=== PATIENT | male | born 1970 | race African-American/Black ===

== ENCOUNTER 2020-04-25 10:52 | Emergency (ER) | payer BC, SELFPAY ==
--- NOTE | ~2020-04-25 | XR_ITS ---
XR chest 2V DATE: 04/25/2020 11:30 INDICATION: Chest pain along anterior chest wall for 6 weeks TECHNIQUE: PA and lateral views COMPARISON: 08/04/2018 PA and lateral chest FINDINGS: Normal heart size. No hilar or mediastinal enlargement. No pulmonary infiltrate or consolid ation, pleural effusion or pulmonary vascular congestion or pneumothorax. Chronic anterior wedge comp ression fracture deformities including T8, T9 and particularly T10. IMPRESSION: No active cardiopulmonary disease Chronic compression fracture deformities of the lower thoracic spine Reviewed, dictated and finalized at location B.
--- NOTE | 2020-04-25 10:59 | ECG_ITS ---
Measurements Intervals [place] Rate: 91 P: 46 GA: 146 QRS: 54 QRSD: 80 T: 9 QT: 346 QTc: 427 Interpretive Statements SINUS RHYTHM EARLY PRECORDIAL R/S TRANSITION BASELINE WANDER- II, III, AVF BORDERLINE ECG Electronically Signed On 04-25-2020 12:24:35 CDT by Wilton Dunlap D.O.
[2020-04-25 11:21] LABS: Basophils Percent Auto 0.4 % (0.2-1.2); Eosinophils Absolute Auto 0.1 K/mm3 (0-0.3); Eosinophils Percent Auto 1.3 % (0-4.4); Hematocrit 42.9 % (42.0-52.0); Hemoglobin 13.8 g/dL (14.0-18.0); Immature Granulocyte Absolute 0.01 K/mm3 (0.00-0.031); Immature Granulocyte Percent A 0.2 % (0-0.5); Lymphocytes Absolute Auto 1.59 K/mm3 (0.9-3.2); Lymphocytes Percent Auto 33.5 % (18.3-44.2); Mean Corpuscular HGB Conc 32.2 g/dl (32-36); Mean Corpuscular Hemoglobin 23.4 pg (26-34); Mean Corpuscular Volume 72.7 fl (80-100); Mean Platelet Volume 11.7 fl (7.4-10.4); Monocytes Absolute Auto 0.4 K/mm3 (0.1-0.6); Monocytes Percent Auto 8.2 % (2.6-8.5); Neutrophils Absolute Auto 2.7 K/mm3 (1.3-6.7); Neutrophils Percent Auto 56.4 % (45.5-73.1); Platelet Count Result 176 k/mm3 (150-375); Red Cell Distribution Width 15.2 % (11.5-14.5); White Blood Count 4.7 K/mm3 (4.5-10.0)
--- NOTE | 2020-04-25 11:26 | ED.GENADULT ---
HPI - General Adult General Chief complaint: Chest Pain Stated complaint: CHEST PAIN [id number] Time Seen by Provider: 04/25/20 11:09 Source: patient Mode of arrival: ambulatory Limitations: no limitations History of Present Illness HPI narrative: Patient is a 49-year-old male who presents to emergency department for evaluation of chest heaviness across the chest from primary care doctor's office symptoms have been present for 6 weeks and persistent in nature denies any illness or other complaints and is otherwise in the room in no distress upon arrival Related Data Allergies Allergy/AdvReac Type Severity Reaction Status Date / Time Sulfa (Sulfonamide Allergy Unknown Hyperactive Verified 04/25/20 12:10 Antibiotics) ENVIRONMENTAL ALLERGIES Allergy Unknown Sneezing Uncoded 04/25/20 12:10 Review of Systems Review of Systems: All systems reviewed & are unremarkable except as noted in HPI and below PMFSH Past Medical History Medical History HIV (human immunodeficiency virus infection) Surgical History Surgical History History of appendectomy History of nasal surgery Chronic 9500-6409 Family History Family History (Updated 03/23/14 @ 07:13 by DOCTOR UNKNOWN) Mother Family history of primary malignant neoplasm of liver Social History Social History Smoking status: Current every day smoker Tobacco type: cigarettes Additional smoking assessment comments: 1 PPD x 25 years Alcohol intake: current Gender identity (if verbalized by the patient): Male Exam Narrative: Exam Narrative: GENERAL: Well-appearing, well-nourished, and in no acute distress. HEAD: Normocephalic, atraumatic. EYES: PERRLA and EOMI. ENT: Nares clear, no rhinorrhea or epistaxis. Mucous membranes moist. Oropharynx without tonsillar hypertrophy exudate or other lesions. CHEST: Clear to auscultation. No respiratory distress. No wheezes rales or rhonchi HEART: Regular rate and rhythm. No murmur heard. Normal peripheral pulses. ABDOMEN: Soft, nontender, nondistended EXTREMITIES: Normal range of motion. No edema. SKIN: Warm, dry, no rash. NEURO: No focal deficits. Alert and oriented x3. PSYCH: Normal mood and affect. Course Course Emergency Course: Patient in the room in no distress aware of case findings treatment plan and diagnosis agreeing to follow-up as directed or to return if symptoms worsen or concerns Vital Signs Vital signs: Vital Signs Pulse Rate 84 04/25/20 12:03 Respiratory Rate 20 04/25/20 12:03 Blood Pressure 143/103 H 04/25/20 12:03 Pulse Oximetry 98 04/25/20 12:03 Pulse Rate 87 04/25/20 12:03 Respiratory Rate 20 04/25/20 12:03 Blood Pressure 143/103 H 04/25/20 12:03 Pulse Oximetry 100 04/25/20 12:08 Medical Decision Making MDM Narrative Medical decision making narrative: Paitents EKGs and labs are without significant high risk changes. Cardiac risk facotrs were reviewd. Patient is felt likely to be low risk for ACS and resonable for further risk stratification testing as an outpatient. Pain was not suddne or maximal in onset without tearing or ripping. quality. No other signs or symptoms to suggest aortic dissection. A low-risk Wells criteria is noted. PE is felt to be unlikely. No pneumonia or URI symptoms were seen on evaluation today. Patient is felt to b resonable for continued evaluation as an outpatient. Vital Signs Vital Signs: Vital Signs Pulse Rate 84 04/25/20 12:03 Respiratory Rate 04/25/20 12:03 Blood Pressure 143/103 H 04/25/20 12:03 Pulse Oximetry 98 04/25/20 12:03 Pulse Rate 87 04/25/20 12:03 Respiratory Rate 04/25/20 12:03 Blood Pressure 143/103 H 04/25/20 12:03 Pulse Oximetry 100 04/25/20 12:08 Lab Data Result diagrams: 04/25/20 11:10 04/25/20 11:
[2020-04-25 11:30] LABS: INR 1.1; Prothrombin Time 13.4 Seconds (11.1-14.7)
[2020-04-25 11:31] LABS: Partial Thromboplastin Time 30.9 SECONDS (22.3-36.8)
[2020-04-25 11:32] LABS: Anion Gap 10 mmol/L (8-16); Blood Urea Nitrogen 14 mg/dL (9-20); Calcium 9.3 mg/dL (8.4-10.2); Carbon Dioxide 25 mmol/L (22-30); Chloride 108 mmol/L (98-107); Estimated Glomerular Filt Rate > 60; Glucose 99 mg/dL (75-110); Potassium 4.1 mmol/L (3.4-5.0); Sodium 143 mmol/L (137-145)
[2020-04-25 11:44] LABS: Troponin I < 0.012 ng/mL (0.000-0.034)
[2020-04-25] MEDS: ASPIRIN 81 MG CHEWABLE TABLET 324 MG PO (12:01)
[2020-04-25 12:03] VITALS: BP 143/103; PULSE 84; PULSE 87; RESP 20; O2SAT 98
[2020-04-25 12:08] VITALS: O2SAT 100
[2020-04-25 12:17] LABS: D Dimer 0.33 ug/mL (<0.48)
[2020-04-25 13:12] VITALS: BP 126/90; PULSE 80; RESP 17; O2SAT 99
== END 2020-04-25 13:16 | disposition home or self-care (01) ==
LOC: ANHED 11:31
PROVIDERS: Emergency Medicine Emergency Medical Services; Emergency Provider Emergency Medicine; PCP Emergency Medicine
DX: R07.89 Other chest pain (principal); Z21 Asymptomatic human immunodeficiency virus [HIV] infection status; F17.210 Nicotine dependence, cigarettes, uncomplicated; R94.31 Abnormal electrocardiogram [ECG] [EKG]
CPT/HCPCS: 36415; 71046; 80048; 84484; 85025; 85380; 85610; 85730; 93005; 99284; A9270

== ENCOUNTER 2021-08-25 12:17 | Emergency (ER) | payer OTHER, SELFPAY ==
--- NOTE | ~2021-08-25 | XR_ITS ---
EXAMINATION: XR chest 2V DATE: 08/25/2021 12:45 INDICATION: Left chest pain. TECHNIQUE: Frontal and lateral views of the chest were obtained. COMPARISON: Chest 2 views 04/25/2020 FINDINGS: The chest demonstrates clear lungs without pneumonia, pleural effusion, or pneumothorax. Th e heart size is normal. There is chronic height loss of multiple thoracic vertebral bodies. IMPRESSION: 1. No acute cardiopulmonary disease. Reviewed, dictated and finalized at location A. LOPMENT SPEC
[2021-08-25 12:23] VITALS: BP 130/86; PULSE 67; RESP 14; TEMP 37.1; O2SAT 99
--- NOTE | 2021-08-25 12:23 | ECG_ITS ---
Measurements Intervals [place] Rate: 75 P: 51 LA: 143 QRS: 58 QRSD: 94 T: 34 QT: 368 QTc: 411 Interpretive Statements SINUS RHYTHM WITH MARKED SINUS ARRHYTHMIA BASELINE ARTIFACT- III, AVF, V3-V5 NORMAL ECG Electronically Signed On 08-25-2021 16:24:24 DRESS FINISHER by Wilton Dunlap D.O.
[2021-08-25 12:42] LABS: Basophils Percent Auto 0.5 % (0.2-1.2); Eosinophils Absolute Auto 0.1 K/mm3 (0-0.3); Hematocrit 44.3 % (42.0-52.0); Hemoglobin 13.9 g/dL (14.0-18.0); Immature Granulocyte Absolute 0.01 K/mm3 (0.00-0.031); Immature Granulocyte Percent A 0.2 % (0-0.5); Lymphocytes Absolute Auto 2.42 K/mm3 (0.9-3.2); Lymphocytes Percent Auto 37.8 % (18.3-44.2); Mean Corpuscular HGB Conc 31.4 g/dl (32-36); Mean Corpuscular Hemoglobin 23.3 pg (26-34); Mean Corpuscular Volume 74.3 fl (80-100); Mean Platelet Volume 10.3 fl (7.4-10.4); Monocytes Absolute Auto 0.7 K/mm3 (0.1-0.6); Monocytes Percent Auto 10.5 % (2.6-8.5); Neutrophils Absolute Auto 3.1 K/mm3 (1.3-6.7); Platelet Count Result 210 k/mm3 (150-375); Red Blood Count 5.96 M/mm3 (4.6-6.20); Red Cell Distribution Width 16.7 % (11.5-14.5); White Blood Count 6.4 K/mm3 (4.5-10.0)
[2021-08-25 12:52] LABS: INR 0.9; Prothrombin Time 12.3 Seconds (11.1-14.7)
[2021-08-25 12:53] LABS: Partial Thromboplastin Time 30.1 SECONDS (22.3-36.8)
[2021-08-25 12:54] LABS: Alanine Aminotransferase 45 U/L (4-50); Albumin Level 4.4 g/dL (3.5-5.1); Alkaline Phosphatase 66 U/L (38-126); Anion Gap 4 mmol/L (8-16); Aspartate Amino Transferase 40 U/L (17-59); Bilirubin,Total 0.2 mg/dL (0.2-1.3); Blood Urea Nitrogen 15 mg/dL (9-20); Calcium 9.6 mg/dL (8.4-10.2); Carbon Dioxide 27 mmol/L (22-30); Chloride 107 mmol/L (98-107); Estimated CRCL calculation 64 ml/min; Estimated Glomerular Filt Rate > 60; Glucose 92 mg/dL (65-110); Lipase 65 U/L (23-300); Potassium 3.9 mmol/L (3.4-5.0); Sodium 138 mmol/L (137-145)
[2021-08-25 13:06] LABS: Troponin I < 0.012 ng/mL (0.000-0.034)
[2021-08-25 13:30] VITALS: BP 132/87; PULSE 79; RESP 16
--- NOTE | 2021-08-25 13:41 | ED.GENADULT ---
HPI - General Adult General Chief complaint: Chest Pain Stated complaint: chest pain on inspiration Time Seen by Provider: 08/25/21 12:40 Source: patient and RN notes reviewed Mode of arrival: ambulatory Limitations: no limitations History of Present Illness HPI narrative: Patient is 50 years old -[place] male woke up this morning doing okay, then started turning his head to the right and triggered some sharp pain upper back radiating to left chest. Patient denies any shortness of breath, fever, chills, nausea, vomiting, coughing. Patient report the pain get worse when he turn his head to any direction or when he raises his upper extremities. Patient also mentioned some intermittent numbness of the left foot and left hand over the last 2 weeks. Patient going through divorce which will be finalized next month. History of hypertension, and smoking. No family history of coronary artery disease, currently patient lives alone, fully vaccinated for COVID. Related Data Home Medications Medication Instructions Recorded Confirmed amlodipine 5 mg tablet 5 mg PO DAILY 05/17/20 bictegravir 50 mg-emtricitabine 1 tablet PO DAILY 05/17/20 200 mg-tenofovir alafenam 25 mg tablet Allergies Allergy/AdvReac Type Severity Reaction Status Date / Time Sulfa (Sulfonamide Allergy Unknown Hyperactive Verified 05/17/20 09:09 Antibiotics) ENVIRONMENTAL ALLERGIES Allergy Unknown Sneezing Uncoded 05/17/20 09:09 Review of Systems Review of Systems: CONSTITUTIONAL: Denies fever, chills, or sweats. EYES: Denies visual changes, redness, or discharge. ENT: Denies rhinorrhea, congestion, sore throat, or otalgia. CARDIOVASCULAR: Denies chest pain, palpitations, or edema. RESPIRATORY: Denies cough or dyspnea. GASTROINTESTINAL: Denies abdominal pain, nausea, vomiting, or diarrhea. GENITOURINARY: Denies dysuria or hematuria. SKIN: Denies rash or itching. MUSCULOSKELETAL: Denies back pain, joint pain, or myalgia. NEUROLOGIC: Denies headache, numbness, or weakness. PSYCHIATRIC: Denies anxiety or depression. [facility] Past Medical History Medical History (Updated 08/25/21 @ 13:57 by Vesta Ventura MD) HIV (human immunodeficiency virus infection) Surgical History Surgical History History of appendectomy History of nasal surgery Chronic 8694-2318 Family History Family History Mother Family history of primary malignant neoplasm of liver Social History Social History Smoking status: Current every day smoker Tobacco type: cigarettes Second hand tobacco smoke exposure: No Additional smoking assessment comments: 1 PPD x 25 years Alcohol intake: current Substance use: current Substance use type: does not use Gender identity (if verbalized by the patient): Male Exam Narrative: General appearance: Well-developed, well-nourished Skin: Normal color Head: Normocephalic, nontraumatic Eyes: Clear conjunctiva ENT: Oropharynx normal, ears normal, nose normal Neck: Supple, nontender Chest and respiratory: Airway patent, no respiratory distress, no accessory muscle use Heart: Regular rate/rhythm Abdomen: Soft, nontender, no organomegaly, quiet bowel sounds Vascular: Normal peripheral pulses, normal capillary refill. Musculoskeletal: Mild to moderate tenderness upper back and upper chest. 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
== END 2021-08-25 14:15 | disposition home or self-care (01) ==
PROVIDERS: Emergency Provider Emergency Medicine; PCP Emergency Medicine
DX: M54.6 Pain in thoracic spine (principal); R07.9 Chest pain, unspecified; F41.9 Anxiety disorder, unspecified; I10 Essential (primary) hypertension; Z21 Asymptomatic human immunodeficiency virus [HIV] infection status; F17.210 Nicotine dependence, cigarettes, uncomplicated
CPT/HCPCS: 36415; 71046; 80053; 83690; 84484; 85025; 85610; 85730; 93005; 99284

== ENCOUNTER 2021-09-02 09:57 | Outpatient (CLI) | payer OTHER, SELFPAY ==
--- NOTE | ~2021-09-02 | XR_ITS ---
XR cervical spine 4-5V DATE: 09/02/2021 10:29 INDICATION: Paresthesia of fingers, feet, toes TECHNIQUE: AP, open-mouth, lateral and bilateral oblique views COMPARISON: None FINDINGS: There is straightening of the cervical spine. There is mild levoscoliosis of the cervical and upper thoracic spine. C1 and C2 are normally aligned and the odontoid process is intact. No fracture or dislocation or lock ed facet or prevertebral soft tissue swelling. There is mild loss of height at C3-4 and C4-5 interspaces. There is severe degenerative disc disease at C5-6 and C6-7 with posterior spurring. There is uncovertebral joint spurring at C5-6 and C6-7 encroaching upon bilateral C6 and C7 neural fo ramina anteriorly. IMPRESSION: Straightening Multilevel degenerative disc disease, most pronounced at C5-6 and C6-7 Anterior encroachment upon the C6 and C7 neural foramina bilaterally by uncovertebral joint spurring Reviewed, dictated and finalized at location A. RITY INSTALLER IMPRESSION: Straightening Multilevel degenerative disc disease, most pronounced at C5-6 and C6-7 Anterior encroachment upon the C6 and C7 neural foramina bilaterally by uncover tebral joint spurring
--- NOTE | ~2021-09-02 | XR_ITS ---
XR thoracic spine 3V DATE: 09/02/2021 10:29 INDICATION: Paresthesia of pancreas, cecum, toes. History of old T8-10 fractures TECHNIQUE: AP, lateral, swimmer views COMPARISON: September 02, 2021 lumbar spine FINDINGS: There is a clinical history of T8-T10 fractures; moderately prominent anterior wedge compre ssion fracture deformity of T10 is evident. Milder compression fracture deformities of T8 and T9 are suggested, all likely chronic given the history of prior fractures at these levels. No other fracture is evident. The thoracic pedicles are intact. No paraspinal soft tissue thickening. IMPRESSION: Likely chronic T8-T10 fractures Reviewed, dictated and finalized at location A. 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
--- NOTE | ~2021-09-02 | XR_ITS ---
XR lumbar spine 2-3V DATE: 09/02/2021 10:29 INDICATION: Paresthesias of the feet and toes TECHNIQUE: AP, lateral, coned lateral lumbosacral views COMPARISON: None FINDINGS: Moderately prominent T10 compression fracture deformity is noted. Normal alignment of the lumbar vertebrae. No fracture, bone destruction, spondylolysis or spondylolis thesis. The lumbar pedicles are intact. The sacroiliac joints appear normal. IMPRESSION: No significant abnormality of the lumbar spine T10 chronic compression fracture deformity Reviewed, dictated and finalized at location A. [employer]
== END 2021-09-02 09:58 | disposition home or self-care (01) ==
LOC: ANHIMG 10:03
PROVIDERS: PCP Emergency Medicine; Visit Provider Emergency Medicine
DX: R20.0 Anesthesia of skin (principal); M48.54XA Collapsed vertebra, not elsewhere classified, thoracic region, initial encounter for fracture; M50.322 Other cervical disc degeneration at C5-C6 level; M77.8 Other enthesopathies, not elsewhere classified
CPT/HCPCS: 72050; 72072; 72100

== ENCOUNTER 2022-07-01 01:53 | Day surgery (SDC) | payer BC, OTHER, SELFPAY ==
[2022-06-23 11:48] VITALS: BMI 28.8
--- NOTE | 2022-07-01 11:08 | WPDANESEPPF ---
Anes - Initial Pre Proc Eval Procedure: Operation Date: 07/01/22 13:30 Proposed Procedures p Screening Colonoscopy - Pepito Saucedo MD Date/Time: 07/01/22 11:08 Surgeon: Pepito Saucedo MD Pre Op Diagnosis: family hx of colon cancer Patient Data Age: 51 Gender: M Height: 1.73 m Weight: 86 kg Allergies Allergy/AdvReac Type Severity Reaction Status Date / Time Sulfa (Sulfonamide Allergy Unknown Hyperactive Verified 07/01/22 12:21 Antibiotics) ENVIRONMENTAL ALLERGIES Allergy Unknown Sneezing Uncoded 07/01/22 12:21 Home Medications Medication Instructions Recorded Confirmed Type bictegravir 50 mg-emtricitabine 1 tablet PO DAILY 05/17/20 07/01/22 History 200 mg-tenofovir alafenam 25 mg tablet (Biktarvy) amlodipine 5 mg tablet 5 mg PO DAILY #90 tabs 06/06/22 07/01/22 Rx azelastine 137 mcg (0.1 %) nasal 1 spray intranasal DAILY 06/23/22 07/01/22 History spray aerosol cetirizine 10 mg tablet (Zyrtec) 10 mg PO DAILY 06/23/22 07/01/22 History Patient hx anesthesia problems: none Family hx anesthesia problems: none Results Review: All pre-operative results and documents have been reviewed as part of the pre-operative evaluation. [facility] Past Medical History Medical History (Updated 07/01/22 @ 13:11 by Pepito Saucedo MD) Family history of colon cancer in mother HIV (human immunodeficiency virus infection) HIV (human immunodeficiency virus infection) Hypertension Surgical History Surgical History History of appendectomy History of nasal surgery Chronic 1102-1893 Family History Family History Mother Family history of primary malignant neoplasm of liver Breast cancer Carcinoma of colon Grandparent Cerebrovascular accident Father Diabetes mellitus Hypertension Sibling Carcinoma of colon Malignant neoplasm of prostate Social History Social History Years smoked: 30 Smoking status: Current every day smoker Tobacco type: cigarettes Second hand tobacco smoke exposure: No Additional smoking assessment comments: 1 PPD x 25 years Alcohol intake: former Alcohol use details: Social Drinker Substance use: never Substance use type: does not use Gender identity (if verbalized by the patient): Male Sexual Orientation (if Verbalized by the Patient): Lesbian, Hernandez, or Homosexual Spiritual care concerns: No Agree to blood products: Yes Anes - Eval Final PreProcedure Day of Procedure 07/01/22 11:08 Patient weight: overweight Heart: regular rate and rhythm Lungs: clear to auscultation Airway: Mallampati scale class II Neurological: alert and oriented Last oral intake: >/= 8 hours ASA classification: III Emergent: no Anesthetic plan: proceed Anesthesia type and monitoring: general GIVS and standard monitoring Results Review: All pre-operative results and documents have been reviewed as part of the pre-operative evaluation. Informed Consent: The patient's anesthetic plan and its attendant risks and benefits were discussed with the patient/family/POA. Questions were solicited and answers provided to the satisfaction of the patient/family/POA.
[2022-07-01 12:12] VITALS: BP 120/82; PULSE 90; RESP 18; TEMP 36.1; O2SAT 100; BMI 29.8
[2022-07-01] MEDS: LACTATED RINGERS 1,000 ML 150 ML IV CONT (12:34)
--- NOTE | 2022-07-01 13:10 | PM.HPGS ---
History of Present Illness History of Present Illness Consent: Risks, benefits, and alternatives have been discussed and questions answered. Patient agrees to proceed with procedure. Chief complaint: family hx of colon cancer Narrative: Anne Fonseca is a 51 year old male with last colonoscopy 5 years ago, mother had colon cancer Review of Systems Constitutional: Constitutional: Denies headache(s) and Denies weakness Eyes: Eyes: Denies blurry vision ENT: Reports Normal hearing present, Denies headache(s) and Denies neck pain Cardiovascular: Cardiovascular: Denies chest pain and Denies dyspnea Respiratory: Respiratory: Denies dyspnea Gastrointestinal: Gastrointestinal: Reports no additional gastrointestinal complaints Genitourinary: Genitourinary: Denies dysuria Musculoskeletal: Musculoskeletal: Denies neck pain Integumentary/Breasts: Skin/Breast: Denies dry skin Neurologic: Reports Normal hearing present, Denies headache(s) and Denies weakness Psychiatric: Psychiatric: Denies anxiety Endocrine: Endocrine: Denies change in body appearance Hematologic/Lymphatic: Hematologic/Lymphatic: Denies easy bleeding Allergic/Immunologic: Allergic/Immunologic: Denies urticaria PMF Past Medical History Medical History (Updated 07/01/22 @ 13:11 by Pepito Saucedo MD) Family history of colon cancer in mother HIV (human immunodeficiency virus infection) HIV (human immunodeficiency virus infection) Hypertension Surgical History Surgical History History of appendectomy History of nasal surgery Chronic 4836-6928 Family History Family History Mother Family history of primary malignant neoplasm of liver Breast cancer Carcinoma of colon Grandparent Cerebrovascular accident Father Diabetes mellitus Hypertension Sibling Carcinoma of colon Malignant neoplasm of prostate Social History Social History Years smoked: 30 Smoking status: Current every day smoker Tobacco type: cigarettes Second hand tobacco smoke exposure: No Additional smoking assessment comments: 1 PPD x 25 years Alcohol intake: former Alcohol use details: Social Drinker Substance use: never Substance use type: does not use Gender identity (if verbalized by the patient): Male Sexual Orientation (if Verbalized by the Patient): Lesbian, Hernandez, or Homosexual Spiritual care concerns: No Agree to blood products: Yes Meds Home Medications and Allergies Home Medications Medication Instructions Recorded Confirmed Type bictegravir 50 mg-emtricitabine 1 tablet PO DAILY 05/17/20 07/01/22 History 200 mg-tenofovir alafenam 25 mg tablet (Biktarvy) amlodipine 5 mg tablet 5 mg PO DAILY #90 tabs 06/06/22 07/01/22 Rx azelastine 137 mcg (0.1 %) nasal 1 spray intranasal DAILY 06/23/22 07/01/22 History spray aerosol cetirizine 10 mg tablet (Zyrtec) 10 mg PO DAILY 06/23/22 07/01/22 History Allergies Allergy/AdvReac Type Severity Reaction Status Date / Time Sulfa (Sulfonamide Allergy Unknown Hyperactive Verified 07/01/22 12:21 Antibiotics) ENVIRONMENTAL ALLERGIES Allergy Unknown Sneezing Uncoded 07/01/22 12:21 Vital Signs Vital Signs - 24 hr 07/01/22 12:12 Temperature 96.9 F L Pulse Rate 90 Respiratory Rate 18 Blood Pressure 120/82 Pulse Oximetry 100 Oxygen Delivery Room Air Exam Const: General: comfortable and no acute distress HENMT: Face/Nose/Sinus: Normal nares present Eyes: General: appearance normal, both eyes and all related structures Neck: Neck: no JVD Resp: Auscultation: clear to auscultation bilaterally Cardio: Rate: regular rate Rhythm: regular rhythm GI: Inspection: non-distended GI Palp: Yes Soft to palpation Skin: General skin exam: normal color Neuro: General: gait normal Speech:
[2022-07-01 13:30] VITALS: BP 102/67; PULSE 93; RESP 22; O2SAT 96
[2022-07-01 13:40] VITALS: BP 118/86; PULSE 91; RESP 19; O2SAT 96
[2022-07-01 13:50] VITALS: BP 114/76; PULSE 77; RESP 18; O2SAT 96
== END 2022-07-01 14:05 | disposition home or self-care (01) ==
PROVIDERS: PCP Family Medicine Adolescent Medicine; Visit Provider Internal Medicine Gastroenterology
PROC: 0DJD8ZZ Inspection of Lower Intestinal Tract, Via Natural or Artificial Opening Endoscopic (ICD-10-PCS; CPT 45378; principal; 2022-07-01 13:30)
DX: Z12.11 Encounter for screening for malignant neoplasm of colon (principal); Z80.0 Family history of malignant neoplasm of digestive organs; Z21 Asymptomatic human immunodeficiency virus [HIV] infection status; Z79.899 Other long term (current) drug therapy; I10 Essential (primary) hypertension; F17.210 Nicotine dependence, cigarettes, uncomplicated
CPT/HCPCS: 45378; J2704; J7120

== ENCOUNTER 2022-07-31 08:03 | Emergency (ER) | payer BC, OTHER, SELFPAY ==
[2022-07-31 08:14] VITALS: BP 143/91; PULSE 83; RESP 16; TEMP 36.7; O2SAT 100
[2022-07-31 08:15] VITALS: BP 143/91; PULSE 83; RESP 16; TEMP 36.7; O2SAT 100
--- NOTE | 2022-07-31 08:17 | ED.URI ---
HPI - URI/Sore Throat General Chief Complaint: Upper Respiratory Infection Stated Complaint: ringing in ear/chest tightness/sargent Time Seen by Provider: 07/31/22 08:19 Source: patient and RN notes reviewed Mode of arrival: ambulatory Limitations: no limitations History of Present Illness HPI Narrative: 51-year-old male with history of chronic recurrent sinusitis, HIV and hypertension presented for complaint of worsening sinus pressure in the forehead, ear ringing, night sweats and occasional productive cough. The symptoms have been present for over 6 weeks. He has had hearing test since the onset and is scheduled with ENT on 09/11/2022 for evaluation of the tinnitus. Patient is a daily smoker. He denies shortness of breath, wheezing, nausea vomiting, diarrhea, fevers or chills. He takes as azelastine, fluticasone, and cetirizine regularly. MD elicited complaint: cough Related Data Home Medications Medication Instructions Recorded Confirmed bictegravir 50 mg-emtricitabine 1 tablet PO DAILY 05/17/20 07/31/22 200 mg-tenofovir alafenam 25 mg tablet (Biktarvy) cetirizine 10 mg tablet (Zyrtec) 10 mg PO DAILY 06/23/22 07/31/22 Allergies Allergy/AdvReac Type Severity Reaction Status Date / Time Sulfa (Sulfonamide Allergy Unknown Hyperactive Verified 07/31/22 08:14 Antibiotics) ENVIRONMENTAL ALLERGIES Allergy Unknown Sneezing Uncoded 07/01/22 12:21 Review of Systems Review of Systems: per HPI [facility] Past Medical History Medical History Family history of colon cancer in mother HIV (human immunodeficiency virus infection) HIV (human immunodeficiency virus infection) Hypertension Surgical History Surgical History History of appendectomy History of nasal surgery Chronic 2949-3440 Family History Family History Mother Family history of primary malignant neoplasm of liver Breast cancer Carcinoma of colon Grandparent Cerebrovascular accident Father Diabetes mellitus Hypertension Sibling Carcinoma of colon Malignant neoplasm of prostate Social History Social History Years smoked: 30 Smoking status: Current every day smoker Tobacco type: cigarettes Second hand tobacco smoke exposure: No Additional smoking assessment comments: 1 PPD x 25 years Alcohol intake: former Alcohol use details: Social Drinker Substance use: never Substance use type: does not use Gender identity (if verbalized by the patient): Male Sexual Orientation (if Verbalized by the Patient): Lesbian, Hernandez, or Homosexual Spiritual care concerns: No Agree to blood products: Yes Exam Narrative: GENERAL: well-appearing EYES: PERRLA, conjunctivae clear ENT: Mucous membranes moist. TMs pearly hinson with dull light reflex bilaterally; no tragal tenderness. Oropharynx without lesions or exudate, no drooling, no hoarseness, no trismus, uvula midline. CHEST: Clear to auscultation, breath sounds equal. No wheezing, rhonchi, rales, or stridor. No respiratory distress, speaks in full sentences. HEART: Regular rate and rhythm. No murmur heard. SKIN: Warm, dry, no rash. NEURO: Alert and oriented x3. PSYCH: Normal mood and affect Course Course Emergency Course: Patient is aware of diagnosis, understands and agrees to treatment plan. Anticipatory guidance given. Patient agrees to follow-up as directed and is aware of reasons to seek care at the emergency department. Portions of this record may have been created with voice recognition software Level of Care: Express Care Visit Vital Signs Vital signs: Vital Signs Temperature 98.0 F 07/31/22 08:14 Pulse Rate 83 07/31/22 08:14 Respiratory Rate 16 07/31/22 08:14 Blood Pressure 143/91 H 07/31/22 08:14 Pulse Oximetry 100 07/31/22
== END 2022-07-31 08:39 | disposition home or self-care (01) ==
PROVIDERS: Emergency Provider Nurse Practitioner Family; PCP Family Medicine Adolescent Medicine
DX: J06.9 Acute upper respiratory infection, unspecified (principal); F17.210 Nicotine dependence, cigarettes, uncomplicated; I10 Essential (primary) hypertension; Z21 Asymptomatic human immunodeficiency virus [HIV] infection status
CPT/HCPCS: 99213; G0463

== ENCOUNTER 2022-08-16 12:19 | Emergency (ER) | payer BC, OTHER, SELFPAY ==
[2022-08-16] VITALS (17 sets, daily range): BP systolic 112–134; BP diastolic 72–85; PULSE 80–110; RESP 16–18; TEMP 36.6–37.2; O2SAT 96–100
--- NOTE | ~2022-08-16 | CT_ITS ---
EXAMINATION: CT abdomen pelvis w con DATE: 08/16/2022 15:36 INDICATION: RLQ/suprapubic tenderness TECHNIQUE: Computed tomography (CT) of the abdomen and pelvis was performed with 100 mL Omnipaque-350 intravenous contrast. Automated exposure control and iterative reconstruction technique were employe d. The dose-length product was 571.18 mGy-cm. COMPARISON: None. FINDINGS: Lower thorax: Bibasilar scar/atelectasis. Liver: Irregular right lobe hypodensity measuring 1.5 cm. Biliary/Gallbladder: Gallbladder is normal. No bile duct dilation. Pancreas: No mass or duct dilation. Spleen: Normal. Adrenals:No mass. Kidneys: Simple right mid and lower pole cysts. Multiple bilateral hypodensities that are too small t o characterize. Patchy bilateral renal enhancement. No hydronephrosis. GI tract: Mild distal esophageal and gastric wall edema. No small or large bowel dilation. Appendix i s absent. Mild wall edema in the cecum, ascending colon, and transverse colon. Diverticulosis without diverticulitis. Mesentery/Peritoneum: No ascites, mass, or free air. Right lower quadrant mesenteric lymphadenopathy. Retroperitoneum: No mass. Pelvis: Bladder wall thickening. Prostatomegaly. Soft Tissues: Soft tissues and body wall unremarkable. Bones: No acute osseous finding. Chronic appearing mild and moderate vertebral body compression frac tures in the lower thoracic spine. IMPRESSION: Mild esophagitis/gastritis. Patchy bilateral renal enhancement as can be seen with pyelonephritis. In fectious, inflammatory, or ischemic colitis involving involving the cecum, ascending colon and transv erse colon. Right lower quadrant mesenteric lymphadenopathy. Urinary bladder wall thickening which ma y be secondary to cystitis or outlet compromise. Reviewed, dictated and finalized at location [facility]. IRATORY EQUIPMENT ASSISTANT IMPRESSION: Mild esophagitis/gastritis. Patchy bilateral renal enhancement as can be seen w ith pyelonephritis. Infectious, inflammatory, or ischemic colitis involving inv olving the cecum, ascending colon and transverse colon. Right lower quadrant me senteric lymphadenopathy. Urinary bladder wall thickening which may be secondar y to cystitis or outlet compromise.
--- NOTE | 2022-08-16 13:58 | ED.ABDPAIN ---
HPI - Abdominal Pain General Chief Complaint: Abdominal Pain Stated Complaint: abd pain Time Seen by Provider: 08/16/22 13:56 History of Present Illness HPI narrative: Patient is a 51-year-old male with a history of HIV on Biktarvy, compliant, presenting with lower abdominal pain. Patient states that for the last several days he has had severe intermittent abdominal cramping associated with diarrhea. States that it has been awakening him at night. States that anytime he eats the pain is worsened. States that even fluids worsen the pain. He denies any nausea or vomiting. States that he has had a prior appendectomy. He denies any melena or hematochezia. No fevers, chest pain, shortness of breath, cough, dysuria. Related Data Home Medications Medication Instructions Recorded Confirmed bictegravir 50 mg-emtricitabine 1 tablet PO DAILY 05/17/20 07/31/22 200 mg-tenofovir alafenam 25 mg tablet (Biktarvy) cetirizine 10 mg tablet (Zyrtec) 10 mg PO DAILY 06/23/22 07/31/22 Allergies Allergy/AdvReac Type Severity Reaction Status Date / Time Sulfa (Sulfonamide Allergy Unknown Hyperactive Verified 08/08/22 08:08 Antibiotics) ENVIRONMENTAL ALLERGIES Allergy Unknown Sneezing Uncoded 08/08/22 08:08 Review of Systems Review of Systems: All systems reviewed & are unremarkable except as noted in HPI and below PMFSH Past Medical History Medical History Family history of colon cancer in mother HIV (human immunodeficiency virus infection) HIV (human immunodeficiency virus infection) Hypertension Surgical History Surgical History History of appendectomy History of nasal surgery Chronic [id number] Family History Family History Mother Family history of primary malignant neoplasm of liver Breast cancer Carcinoma of colon Grandparent Cerebrovascular accident Father Diabetes mellitus Hypertension Sibling Carcinoma of colon Malignant neoplasm of prostate Social History Social History Years smoked: 30 Smoking status: Current every day smoker Tobacco type: cigarettes Second hand tobacco smoke exposure: No Additional smoking assessment comments: 1 PPD x 25 years Alcohol intake: former Alcohol use details: Social Drinker Substance use: never Substance use type: does not use Living arrangements: with family Occupation/Education: occupation Gender identity (if verbalized by the patient): Male Sexual Orientation (if Verbalized by the Patient): Lesbian, Hernandez, or Homosexual Spiritual care concerns: No Agree to blood products: Yes Exam Narrative: GENERAL: Well-appearing, well-nourished, and in no acute distress. HEAD: Normocephalic, atraumatic. EYES: PERRLA and EOMI. ENT: Nares clear, no rhinorrhea or epistaxis. Mucous membranes moist. NECK: Supple. CHEST: Clear to auscultation. No respiratory distress. HEART: Regular rate and rhythm. No murmur heard. Normal peripheral pulses. ABDOMEN: Soft, +rlq/suprapubic tenderness, nondistended EXTREMITIES: Normal range of motion. No edema. SKIN: Warm, dry, no rash. NEURO: No focal deficits. Alert and oriented x3. PSYCH: Normal mood and affect. Course Vital Signs Vital signs: Vital Signs Temperature 97.8 F 08/16/22 12:21 Pulse Rate 110 H 08/16/22 12:21 Respiratory Rate 18 08/16/22 12:21 Blood Pressure 134/84 08/16/22 12:21 Pulse Oximetry 99 08/16/22 12:21 Oxygen Delivery Room Air 08/16/22 12:21 Temperature 98.9 F 08/16/22 14:58 Pulse Rate 80 08/16/22 16:46 Respiratory Rate 18 08/16/22 16:46 Blood Pressure 118/80 08/16/22 16:46 Pulse Oximetry 98 08/16/22 16:46 Oxygen Delivery Room Air 08/16/22 14:58 MDM - Abdominal Pain MDM Narrative Medical decision making n
[2022-08-16 14:51] LABS: Basophils Percent Auto 0.2 % (0.2-1.2); Eosinophils Absolute Auto 0.1 K/mm3 (0-0.3); Eosinophils Percent Auto 0.4 % (0-4.4); Hematocrit 41.2 % (42.0-52.0); Hemoglobin 13.1 g/dL (14.0-18.0); Immature Granulocyte Absolute 0.04 K/mm3 (0.00-0.031); Immature Granulocyte Percent A 0.2 % (0-0.5); Lymphocytes Absolute Auto 2.93 K/mm3 (0.9-3.2); Lymphocytes Percent Auto 17.7 % (18.3-44.2); Mean Corpuscular HGB Conc 31.8 g/dl (32-36); Mean Corpuscular Hemoglobin 23.4 pg (26-34); Mean Corpuscular Volume 73.4 fl (80-100); Mean Platelet Volume 11.4 fl (7.4-10.4); Monocytes Absolute Auto 1.3 K/mm3 (0.1-0.6); Monocytes Percent Auto 7.7 % (2.6-8.5); Neutrophils Absolute Auto 12.2 K/mm3 (1.3-6.7); Neutrophils Percent Auto 73.8 % (45.5-73.1); Platelet Count Result 139 k/mm3 (150-375); Red Blood Count 5.61 M/mm3 (4.6-6.20); Red Cell Distribution Width 15.2 % (11.5-14.5); White Blood Count 16.6 K/mm3 (4.5-10.0)
[2022-08-16 15:02] LABS: Alanine Aminotransferase 21 U/L (6-50); Albumin Level 4.2 g/dL (3.5-5.1); Alkaline Phosphatase 67 U/L (38-126); Anion Gap 8 mmol/L (8-16); Aspartate Amino Transferase 23 U/L (17-59); Bilirubin,Total 0.7 mg/dL (0.2-1.3); Blood Urea Nitrogen 9 mg/dL (9-20); Calcium 8.7 mg/dL (8.4-10.2); Carbon Dioxide 25 mmol/L (22-30); Chloride 106 mmol/L (98-107); Estimated Glomerular Filt Rate > 60; Glucose 88 mg/dL (65-110); Potassium 3.6 mmol/L (3.4-5.0); Sodium 139 mmol/L (137-145)
[2022-08-16 15:03] LABS: Appearance Urine Clear (Clear); Bilirubin Urine Negative (Negative); Blood Urine Negative (Negative); Color Urine Yellow (Yellow); Glucose Urine UA Negative (Negative); Ketones Urine Negative (Negative); Leukocyte Esterase Ur Negative LEU/UL (Negative); Nitrate Urine Negative (Negative); Protein Urine Negative (Negative); Urobilinogen Urine 0.2 mg/dL (<2.0); pH Urine 5.5 (5.0-9.0)
[2022-08-16 15:05] LABS: Mucus Urine Rare /lpf; WBC Urine 0-3 /hpf
[2022-08-16 15:09] LABS: Add Urine Microscopic? NO
[2022-08-16] MEDS: SODIUM CHLORIDE 0.9% IV 1,000 ML 999 ML IV CONT (15:10)
[2022-08-16] MEDS: AMOXICILLIN/CLAVULANATE K 875-125 MG TAB 1 TABLET PO (17:24)
== END 2022-08-16 17:30 | disposition home or self-care (01) ==
PROVIDERS: Physician Assistant; Emergency Provider Emergency Medicine; PCP Family Medicine Adolescent Medicine
DX: A04.8 Other specified bacterial intestinal infections (principal); I10 Essential (primary) hypertension; F17.210 Nicotine dependence, cigarettes, uncomplicated; Z21 Asymptomatic human immunodeficiency virus [HIV] infection status
CPT/HCPCS: 36415; 74177; 80053; 81003; 85025; 85055; 96360; 99284; A9270; J7030; Q9967

== ENCOUNTER → 2022-08-21 09:12 | Outpatient (CLI) | payer BC, SELFPAY ==
--- NOTE | ~2022-08-21 | MR_ITS ---
MRI of the brain Clinical History: Headache Technique: Axial and sagittal T1-weighted images were acquired. These were followed by axial T2-weigh miguel, diffusion weighted, gradient, and FLAIR images. Findings: There are minimal chronic white matter changes in the periventricular white matter bilatera lly. No intracranial hemorrhage, mass lesion, or acute infarct. Ventricles and subarachnoid spaces are unremarkable. Orbits are unremarkable. Left maxillary sinus di sease present. Remaining paranasal sinuses and mastoid air cells are clear. Major intracranial flow v oids are intact. Sagittal midline structures are intact. IMPRESSION: No intracranial hemorrhage, mass lesion, or acute infarct. Minimal chronic white matter changes. Left maxillary sinus disease. Reviewed, dictated and finalized at location . GER OPERATIONAL
== END ==
PROVIDERS: PCP Family Medicine Adolescent Medicine; Visit Provider Physician Assistant
DX: J32.0 Chronic maxillary sinusitis (principal)
CPT/HCPCS: 70551

== ENCOUNTER 2022-08-30 12:24 | Outpatient (CLI) | payer BC, OTHER, SELFPAY ==
--- NOTE | ~2022-08-30 | MR_ITS ---
MRI of the abdomen: Clinical indication: Abdominal pain. Technique: Coronal SSFSE ARC, WATER:coronal LAVA-FLEX, Coronal 2D FIESTA FatSat, Axial SSFSE BH ARC, Axial 3D DualEcho BH, Axial SSFSE-IR, Axial DWI b=500, Axial 2D FIESTA FatSat, pre and dynamic postco ntrast Axial LAVA ARC, postcontrast Coronal In and Opposed phase LAVA FLEX. Following intravenous adm inistration of 18 cc MultiHance gadolinium, T1-weighted fat-sat imaging was performed in the axial an d coronal planes. COMPARISON: CT scan dated 08/16/2022 Findings: Gallbladder is unremarkable. The common bile duct is normal in course and caliber. No filli ng defects are seen within the CBD. No evidence of intrahepatic biliary ductal dilatation. The pancre atic duct is normal in size. There is a 1.5 x 1.4 cm lesion in the posterior right hepatic lobe, probably T2 hyperintense, T1 hypo intense, and which demonstrate discontinuous peripheral nodular enhancement with progressive fill in over time on postcontrast images. This is consistent with hemangioma. No other hepatic lesion identif ied. Spleen, pancreas, adrenals, kidneys appear normal. The aorta and the paraaortic regions appear normal . Impression: 1.5 x 1.4 cm hemangioma in the posterior right hepatic lobe, as detailed above. This correlates with the hepatic finding on recent CT scan. Reviewed, dictated and finalized at [facility]. LE WEB APPLICATION DEVELOPER Impression: 1.5 x 1.4 cm hemangioma in the posterior right hepatic lobe, as detailed above. This correlates with the hepatic finding on recent CT scan.
== END 2022-08-30 12:25 | disposition home or self-care (01) ==
PROVIDERS: PCP Family Medicine Adolescent Medicine; Visit Provider Physician Assistant
DX: R16.0 Hepatomegaly, not elsewhere classified (principal)
CPT/HCPCS: 74183; A9577

== ENCOUNTER 2023-03-04 07:15 | Emergency (ER) | payer BC, SELFPAY ==
--- NOTE | 2023-03-04 07:28 | ED.ALLEREA ---
HPI - Allergic Reaction General Chief complaint: Allergic Reaction Stated complaint: allergic reaction Time Seen by Provider: 03/04/23 07:24 Source: patient Mode of arrival: ambulatory Limitations: no limitations History of Present Illness HPI narrative: 52 years old -[place] male was trying to his georges 5 days ago subsequently developed severe itching and rash at that area. He denies any difficulty breathing or swallowing or itching or rash anywhere else. History of HIV. Related Data Home Medications Medication Instructions Recorded Confirmed bictegravir 50 mg-emtricitabine 1 tablet PO DAILY 05/17/20 09/11/22 200 mg-tenofovir alafenam 25 mg tablet (Biktarvy) cetirizine 10 mg tablet (Zyrtec) 10 mg PO DAILY 06/23/22 09/11/22 Allergies Allergy/AdvReac Type Severity Reaction Status Date / Time Sulfa (Sulfonamide Allergy Unknown Hyperactive Verified 12/18/22 14:29 Antibiotics) ENVIRONMENTAL ALLERGIES Allergy Unknown Sneezing Uncoded 12/18/22 14:29 Review of Systems Review of Systems: All systems reviewed & are unremarkable except as noted in HPI and below PMFSH Past Medical History Medical History Family history of colon cancer in mother HIV (human immunodeficiency virus infection) HIV (human immunodeficiency virus infection) Hypertension Surgical History Surgical History History of appendectomy History of nasal surgery Chronic 9589-6154 Family History Family History Mother Family history of primary malignant neoplasm of liver Breast cancer Carcinoma of colon Grandparent Cerebrovascular accident Father Diabetes mellitus Hypertension Sibling Carcinoma of colon Malignant neoplasm of prostate Social History Social History Years smoked: 30 Smoking status: Current every day smoker Tobacco type: cigarettes Second hand tobacco smoke exposure: No Additional smoking assessment comments: 1 PPD x 25 years Alcohol intake: former Alcohol use details: Social Drinker Substance use: never Substance use type: does not use Lack of Transportation: No Lack of Food: Never True Current Housing: I Have Housing Concerned About Future Housing: No Difficulty Paying Gas/Electric Bills: No Difficulty Paying for Meds: No Currently Unemployed: No Education: Associate Degree Difficulty w/ Childcare or Family Care: No Living arrangements: with family Occupation/Education: occupation Gender identity (if verbalized by the patient): Male Sexual Orientation (if Verbalized by the Patient): Lesbian, Hernandez, or Homosexual Spiritual care concerns: No Agree to blood products: Yes Exam Narrative: General appearance: Well-developed, well-nourished Skin: Normal color, hives oozing clear secretions at the georges area, Head: Normocephalic, nontraumatic Eyes: Clear conjunctiva ENT: Oropharynx normal, ears normal, nose normal Neck: Supple, nontender Chest and respiratory: Airway patent, no respiratory distress, no accessory muscle use Heart: Regular rate/rhythm Neurologic: Alert and oriented ?3, METAL PRODUCTS VIEWER is normal as tested, no gross motor deficit MDM - Allergic Reaction MDM Narrative Medical decision making narrative: Contact dermatitis secondary to cosmetic Patient was advised to stop the dye immediately and cannot use it in the future, To use topical triamcinolone and oral prednisone. Differential Diagnosis Differential diagnosis: Likely allergic reaction and contact dermat
[2023-03-04 07:33] VITALS: BP 141/95; PULSE 95; RESP 18; TEMP 36.6; O2SAT 99
== END 2023-03-04 07:47 | disposition home or self-care (01) ==
PROVIDERS: Emergency Provider Emergency Medicine; PCP Family Medicine Adolescent Medicine
DX: L23.4 Allergic contact dermatitis due to dyes (principal); I10 Essential (primary) hypertension; Z21 Asymptomatic human immunodeficiency virus [HIV] infection status; F17.210 Nicotine dependence, cigarettes, uncomplicated; Z79.899 Other long term (current) drug therapy
CPT/HCPCS: 99283

== ENCOUNTER 2023-08-26 12:02 | Emergency (ER) | payer BC, SELFPAY ==
--- NOTE | ~2023-08-26 | XR_ITS ---
XR chest 1V portable DATE: 08/26/2023 12:53 INDICATION: Acute chest pain. Left numbness. TECHNIQUE: Portable AP chest COMPARISON: None FINDINGS: Normal heart size. No hilar or mediastinal enlargement. No pulmonary infiltrate or consol idation, pulmonary vascular congestion or pleural effusion or pneumothorax. IMPRESSION: Negative Reviewed, dictated and finalized at location [facility]. ERONE IMPRESSION: Negative
--- NOTE | ~2023-08-26 | CT_ITS ---
EXAMINATION: CT brain wo con DATE: 08/26/2023 12:57 INDICATION: Left-sided numbness. Right temporal pain for 2 days. TECHNIQUE: Computed tomography (CT) of the head was performed without intravenous contrast. The mA wa s adjusted according to patient size. Iterative reconstruction technique was employed. Exam dose: 60 5.33 mGy-cm total exam DLP. COMPARISON: 08/21/2019 MRI brain/brainstem 06/05/2019 CT brain FINDINGS: No intracranial mass lesion or hemorrhage or cerebrovascular accident. No midline shift or mass effect. Normal ventricular size. Normal hinson-white matter differentiation. No subdural or epidur al hematoma. Old blowout fracture of the medial wall of the right orbit. Prominent mucoperiosteal thickening of th e left maxillary sinus. The mastoid air cells are normally developed and aerated. No fracture or bone destruction of the cranial vault. IMPRESSION: No significant intracranial abnormality Left maxillary sinus mucoperiosteal thickening Old fracture of medial wall of right orbit Reviewed, dictated and finalized at [facility]. Reviewed, dictated and finalized at location [facility]. ER HELPER
[2023-08-26 12:14] LABS: Glucose Point of Care 116 mg/dl (65-105)
[2023-08-26 12:17] VITALS: BP 126/89; PULSE 96; RESP 18; TEMP 36.7; O2SAT 99
--- NOTE | 2023-08-26 12:31 | ECG_ITS ---
Measurements Intervals Peetz Rate: 83 P: 45 MA: 156 QRS: 56 QRSD: 92 T: 36 QT: 352 QTc: 414 Interpretive Statements SINUS RHYTHM EARLY PRECORDIAL R/S TRANSITION BASELINE ARTIFACT- V6 BORDERLINE ECG COMPARED TO ECG 08/25/2021 12:25:55 NO SIGNIFICANT CHANGES Electronically Signed On 08-26-2023 12:50:02 CAGE CLERK by Wilton Dunlap D.O.
[2023-08-26 12:45] LABS: Basophils Percent Auto 0.5 % (0.2-1.2); Eosinophils Absolute Auto 0.2 K/mm3 (0-0.3); Hematocrit 42.6 % (42.0-52.0); Hemoglobin 13.3 g/dL (14.0-18.0); Immature Granulocyte Absolute 0.01 K/mm3 (0.00-0.031); Immature Granulocyte Percent A 0.2 % (0-0.5); Lymphocytes Absolute Auto 2.68 K/mm3 (0.9-3.2); Lymphocytes Percent Auto 44.1 % (18.3-44.2); Mean Corpuscular HGB Conc 31.2 g/dl (32-36); Mean Corpuscular Hemoglobin 23.3 pg (26-34); Mean Corpuscular Volume 74.6 fl (80-100); Mean Platelet Volume 11.1 fl (7.4-10.4); Monocytes Absolute Auto 0.4 K/mm3 (0.1-0.6); Monocytes Percent Auto 6.7 % (2.6-8.5); Neutrophils Absolute Auto 2.8 K/mm3 (1.3-6.7); Neutrophils Percent Auto 45.5 % (45.5-73.1); Platelet Count Result 203 k/mm3 (150-375); Red Blood Count 5.71 M/mm3 (4.6-6.20); Red Cell Distribution Width 15.8 % (11.5-14.5); White Blood Count 6.1 K/mm3 (4.5-10.0)
[2023-08-26 12:57] LABS: Partial Thromboplastin Time 28.8 SECONDS (22.3-36.8); Prothrombin Time 13.3 Seconds (11.1-14.7)
[2023-08-26 13:14] LABS: Alanine Aminotransferase 27 U/L (6-50); Albumin Level 4.5 g/dL (3.5-5.1); Alkaline Phosphatase 60 U/L (38-126); Anion Gap 9 mmol/L (8-16); Aspartate Amino Transferase 33 U/L (17-59); Bilirubin,Total 0.5 mg/dL (0.2-1.3); Blood Urea Nitrogen 14 mg/dL (9-20); Calcium 9.6 mg/dL (8.4-10.2); Carbon Dioxide 25 mmol/L (22-30); Chloride 107 mmol/L (98-107); Estimated Glomerular Filt Rate > 60; Glucose 109 mg/dL (65-110); Potassium 3.9 mmol/L (3.4-5.0); Sodium 141 mmol/L (137-145)
[2023-08-26 13:25] LABS: Troponin I < 0.012 ng/mL (0.000-0.034)
[2023-08-26 13:27] LABS: Anisocytosis 1+ (NORMAL); Platelet Estimate Adequate (Adequate); Schistocytes None Seen (NORMAL)
--- NOTE | 2023-08-26 15:09 | ED.GENADULT ---
HPI - General Adult General Chief complaint: Neuro Symptoms/Deficit Stated complaint: dif speaking, facial numbness Time Seen by Provider: 08/26/23 12:29 History of Present Illness HPI narrative: Patient is a 52-year-old male who presents ER with concerns for stroke-like symptoms. He woke up this morning with tingling to left side of his face and some pressure in his left ear. No slurred speech or expressive aphasia. Reports he is giving a presentation yesterday and briefly had trouble remembering what he had to say. No difficulty walking. No history of CVA previously. Patient does have history of HIV. He reports a undetectable viral load and compliance with home medications. Patient reports some chronic sinus congestion but worsened over last week on left side. Related Data Home Medications Medication Instructions Recorded Confirmed bictegravir 50 mg-emtricitabine 1 tablet PO DAILY 05/17/20 09/11/22 200 mg-tenofovir alafenam 25 mg tablet (Biktarvy) cetirizine 10 mg tablet (Zyrtec) 10 mg PO DAILY 06/23/22 09/11/22 Allergies Allergy/AdvReac Type Severity Reaction Status Date / Time Sulfa (Sulfonamide Allergy Unknown Hyperactive Verified 12/18/22 14:29 Antibiotics) ENVIRONMENTAL ALLERGIES Allergy Unknown Sneezing Uncoded 12/18/22 14:29 Review of Systems Review of Systems: All systems reviewed & are unremarkable except as noted in HPI and below Constitutional: Constitutional: Reports no additional constitutional complaints ENT: Reports system reviewed and no additional complaints, except as documented Cardiovascular: Cardiovascular: Reports no additional cardiovascular complaints Respiratory: Respiratory: Reports no additional respiratory complaints Gastrointestinal: Gastrointestinal: Reports no additional gastrointestinal complaints Musculoskeletal: Musculoskeletal: Reports no additional musculoskeletal complaints Neurologic: Denies dizziness, Denies syncope, Denies focal weakness and Reports numbness PMFSH Past Medical History Medical History Family history of colon cancer in mother HIV (human immunodeficiency virus infection) HIV (human immunodeficiency virus infection) Hypertension Surgical History Surgical History History of appendectomy History of nasal surgery Chronic 2883-9807 Family History Family History Mother Family history of primary malignant neoplasm of liver Breast cancer Carcinoma of colon Grandparent Cerebrovascular accident Father Diabetes mellitus Hypertension Sibling Carcinoma of colon Malignant neoplasm of prostate Social History Social History Years smoked: 30 Smoking status: Current every day smoker Tobacco type: cigarettes Second hand tobacco smoke exposure: No Additional smoking assessment comments: 1 PPD x 25 years Alcohol intake: former Alcohol use details: Social Drinker Substance use: never Substance use type: does not use Lack of Transportation: No Lack of Food: Never True Current Housing: I Have Housing Concerned About Future Housing: No Difficulty Paying Gas/Electric Bills: No Difficulty Paying for Meds: No Currently Unemployed: No Education: Associate Degree Difficulty w/ Childcare or Family Care: No Living arrangements: with family Occupation/Education: occupation Gender identity (if verbalized by the patient): Male Sexual Orientation (if Verbalized by the Patient): Lesbian, Hernandez, or Homosexual Spiritual care concerns: No Agree to blood products: Yes Exam Narrative: GENERAL: Well-appearing, well-nourished, and in no acute distress. HEAD: Normocephalic, atraumatic. ENT: Mucous membranes moist. Fluid build up behind the left eardrum. NECK: Supple. CHEST: Clear to auscultation.
[2023-08-26 16:04] VITALS: BP 115/92; PULSE 87; RESP 16; O2SAT 100
== END 2023-08-26 16:04 | disposition home or self-care (01) ==
PROVIDERS: Emergency Provider Emergency Medicine; PCP Family Medicine Adolescent Medicine
DX: R20.2 Paresthesia of skin (principal); J32.0 Chronic maxillary sinusitis; F17.210 Nicotine dependence, cigarettes, uncomplicated; I10 Essential (primary) hypertension; B20 Human immunodeficiency virus [HIV] disease
CPT/HCPCS: 36415; 70450; 71045; 80053; 82948; 84484; 85025; 85610; 85730; 93005; 99284

== ENCOUNTER 2023-08-28 08:49 | Outpatient (CLI) | payer BC, SELFPAY ==
[2023-08-28 09:38] LABS: CRP < 0.5 mg/dL (<1.0)
[2023-08-28 09:56] LABS: Erythrocyte Sedimentation Rate 14 mm/hr (0-20)
== END 2023-08-28 08:50 | disposition home or self-care (01) ==
LOC: ANHLAB 08:51
PROVIDERS: PCP Family Medicine Adolescent Medicine; Visit Provider Nurse Practitioner Family
DX: R20.0 Anesthesia of skin (principal); R51.9 Headache, unspecified
CPT/HCPCS: 36415; 85652; 86140

== ENCOUNTER 2023-09-05 12:28 | Outpatient (CLI) | payer BC, SELFPAY ==
--- NOTE | ~2023-09-05 | MR_ITS ---
MRI of the brain Clinical History: Paresthesia Technique: Axial and sagittal T1-weighted images were acquired. These were followed by axial T2-weigh miguel, diffusion weighted, gradient, and FLAIR images. Coronal thin cut T1-weighted and T2-weighted mariana ges were also performed through the internal auditory canals. COMPARISON: 08/21/2022 Findings: No significant abnormal signal seen in the brain parenchyma. No acute infarct, intracranial hemorrhage, or mass lesion. Ventricles and subarachnoid spaces are unremarkable. Orbits are unremarkable. Paranasal sinuses and m astoid air cells are clear. Major intracranial flow voids are intact. Sagittal midline structures are intact. No abnormal mass lesion seen at the internal auditory canals or cerebellopontine angle regions. IMPRESSION: No significant abnormality seen. Reviewed, dictated and finalized at location . ITY ASSURANCE TESTER
== END 2023-09-05 12:29 | disposition home or self-care (01) ==
LOC: ANHIMG 12:32
PROVIDERS: PCP Family Medicine Adolescent Medicine; Visit Provider Nurse Practitioner Family
DX: R20.0 Anesthesia of skin (principal); R51.9 Headache, unspecified
CPT/HCPCS: 70551

== ENCOUNTER 2023-10-12 08:40 | Outpatient (CLI) | payer BC, SELFPAY ==
--- NOTE | ~2023-10-12 | CT_ITS ---
EXAMINATION: CT sinus wo con DATE: 10/12/2023 09:10 INDICATION: Chronic sinusitis TECHNIQUE: Computed tomography (CT) of the paranasal sinuses was performed without contrast. Iterativ e reconstruction technique was employed. Exam dose: 302.19 mGy-cm total exam DLP. COMPARISON: None FINDINGS: There is an old blowout fracture of the medial wall of the right orbit. There is rightward bowing of the nasal septum. Interlamellar cell of left middle nasal turbinate. Mildly prominent soft tissue swelling of the middl e and inferior nasal turbinates. Status post bilateral partial ethmoidectomies and nasal antral windows. The frontal sinuses, ethmoid air cells and sphenoid sinuses are normally developed and aerated. There is minimal mucoperiosteal thickening of the right maxillary sinus. There is mild mucoperiosteal thickening of the left maxillary sinus. The mastoid air cells are well-developed and aerated. Middle and inner ear apparatus appear normal bilaterally. IMPRESSION: Postoperative changes including bilateral nasal antral windows, ethmoidectomies Mild mucosal periosteal thickening of left maxillary sinus, minimal mucoperiosteal thickening of righ t maxillary sinus Reviewed, dictated and finalized at [facility]. Reviewed, dictated and finalized at location [facility]. IMPRESSION: Postoperative changes including bilateral nasal antral windows, et hmoidectomies Mild mucosal periosteal thickening of left maxillary sinus, minimal mucoperiost eal thickening of right maxillary sinus
== END 2023-10-12 08:41 | disposition home or self-care (01) ==
LOC: ANHIMG 08:44
PROVIDERS: PCP Family Medicine Adolescent Medicine; Visit Provider Otolaryngology
DX: J32.9 Chronic sinusitis, unspecified (principal)
CPT/HCPCS: 70486